=== PATIENT | female | born 1995 | race Caucasian/White ===

== ENCOUNTER 2020-07-20 13:31 | Emergency (ER) | payer OTHER ==
[~2020-07-20] VITALS: Ht 167.6 cm; Wt 82.0 kg
[2020-07-20] MEDS ORDERED: KETOROLAC 30MG/ML VIAL IV STA (14:23)
[2020-07-20] MEDS ORDERED: SODIUM CHLORIDE 0.9% 1,000 ML IV ONE (14:30)
[2020-07-20 14:43] LABS: BASOPHILS % 0.4 % (0.0-2.0); HEMATOCRIT. 39.6 % (36.0-48.0); HEMOGLOBIN. 13.3 g/dL (12.0-16.0); LYMPHOCYTES % 23.9 % (20.0-50.0); MEAN CORPUSCULAR HEMOGLOBIN 29.2 pg (28.0-32.0); MEAN CORPUSCULAR VOLUME 87.2 fL (81.0-99.0); MEAN PLATELET VOLUME 7.6 fl (7.4-10.4); MONOCYTES % 6.9 % (2.0-8.0); NEUTROPHILS % 67.8 % (40.0-76.0); PLATELET 351 x1000/uL (130-400); RED BLOOD CELL COUNT 4.54 mill/uL (4.2-5.4); RED CELL DISTRIBUTION WIDTH 13.5 % (11.6-14.6)
[2020-07-20 14:48] LABS: CHLORIDE 103 mEq/L (98-107)
[2020-07-20 14:52] LABS: ETHANOL BLOOD < 10 mg/dL
[2020-07-20 14:59] LABS: HCG SCREEN NEGATIVE
[2020-07-20 15:01] LABS: *AMPHETAMINES SCREEN URINE NEGATIVE (NEGATIVE)
[2020-07-20 15:02] LABS: *BARBITURATES SCREEN URINE NEGATIVE (NEGATIVE); *BENZODIAZEPINES SCREEN URINE NEGATIVE (NEGATIVE); *COCAINE SCREEN URINE NEGATIVE (NEGATIVE); METHADONE URINE SCREEN NEGATIVE (NEGATIVE)
[2020-07-20 15:03] LABS: CANNABINOID URINE SCREEN NEGATIVE (NEGATIVE); OPIATES URINE SCREEN NEGATIVE (NEGATIVE)
[2020-07-20 15:04] LABS: PHENCYCLIDINE URINE SCREEN NEGATIVE (NEGATIVE)
[2020-07-20] MEDS ORDERED: IBUP-2030 MT (17:48)
[2020-07-20 18:39] VITALS: BP 125/68
== END 2020-07-20 18:39 | disposition home or self-care (01) ==
LOC: ER 14:59
DX: R07.89 Other chest pain (principal); R20.0 Anesthesia of skin; M79.602 Pain in left arm; R03.0 Elevated blood-pressure reading, without diagnosis of hypertension
CPT/HCPCS: 36415; 71045; 80053; 80305; 80320; 83690; 83880; 84484; 84703; 85025; 93005; 96361; 96374; 99285; J1885; J7030; Z7610; G0480